=== PATIENT | male | born 1960 | race Caucasian/White ===

== ENCOUNTER 2019-01-02 17:22 | Inpatient (IN) ==
[2019-01-02 17:56] LABS: BASO# 0.02 X1000 (0.0-0.2); BASO% 0.2 % (0.0-0.8); EOS% 0.8 % (0.0-10.0); HEMATOCRIT 48.9 % (42.0-52.0); HEMOGLOBIN 16.9 g/dL (14.0-18.0); IMM GRAN# 0.03 X1000 (0.0-0.04); IMM GRAN% 0.2 % (0.0-0.5); LYMPH# 1.16 X1000 (1.2-3.4); LYMPH% 8.8 % (20.5-51.1); MCH 29.8 PG (27-31); MCHC 34.6 g/dL (33-37); MCV 86.1 FL (81-99); MONO# 1.32 X1000 (0.11-0.59); MPV 11.4 FL (7.4-10.4); NEUT# 10.58 X1000 (1.4-6.5); PLT 230 X1000 (130-400); RBC 5.68 XMIL (4.7-6.1); RDW 12.8 % (11.5-14.5); WBC 13.21 X1000 (4.8-10.8)
[2019-01-02 18:16] LABS: ALBUMIN 4.6 g/dL (3.5-5.0); CALCIUM 9.7 mg/dL (8.8-10.2); CREATININE 1.9 mg/dL (0.7-1.2); POTASSIUM 3.8 mmol/L (3.5-5.1); TOTAL BILIRUBIN 1.3 mg/dL (0.20-1.00); TOTAL PROTEIN 7.9 g/dL (6.3-8.3)
[2019-01-02 19:09] LABS: BILIRUBIN URINE 2+ (NEGATIVE); BLOOD URINE NEGATIVE (NEGATIVE); CLARITY CLEAR (CLEAR); COLOR AMBER; GLUCOSE URINE NEGATIVE (NEGATIVE); KETONE URINE 1+(Small) mg/dL (NEGATIVE); LEUKOCYTES URINE TRACE (NEGATIVE); NITRITE URINE NEGATIVE (NEGATIVE); PROTEIN URINE 1+(30 mg/dL) mg/dL (NEGATIVE); SP GRAVITY URINE 1.025; UROBILINOGEN URINE 4 mg/dL
[2019-01-02 19:28] LABS: URINE SOURCE CLEAN CATCH
[2019-01-02 19:30] LABS: URINE BACTERIA 2+ /HFP; URINE CAST NONE SEEN /LPF; URINE CRYSTAL NONE SEEN /HPF; URINE EPITHELIAL CELLS >10 /HPF (<10); URINE RBC <10 /HPF (<10); URINE YEAST NONE SEEN /HPF
[2019-01-02] MEDS ORDERED: NS 1,000 ML IV ONE ×2 (22:20→23:48)
[2019-01-02] MEDS ORDERED: ZOFRAN IV ONE (22:22)
[2019-01-03] MEDS ORDERED: ZOSYN 3.375 GM in NS 50 ML IV ONE (01:19)
--- NOTE | 2019-01-03 01:46 | PROVIDER DOCUMENTATION ---
This chart was entered by Xochitl Banks Scribe, acting as scribe for Ward Peng MD. HPI-Abdominal Pain/GI Problem - General Chief Complaint: N/V/D Stated Complaint: REFLUX / BLOATED / D / V Time Seen by Provider: 01/02/19 22:20 Source: patient Allergies/Adverse Reactions: Patient Allergies Allergy/AdvReac Type Severity Reaction Status Date / Time No Known Allergies Allergy Verified 01/03/19 00:31 - History of Present Illness-ABD Nature of Presenting Problems: 58 y/o male presents to ED with epigastric pain, bloating, weakness, and N/V/D onset 3 days ago. Pt reports hx GERD. Pt is alert and oriented. Abdominal Pain Onset Location: reports: epigastric Pain Radiation: reports: no radiation Quality of Pain: reports: aching Severity in ED: reports: mild Onset/Duration: reports: 3 days ago Timing: reports: still present Activities at Onset: reports: none Exposure to sick contacts?: No Modifying Factors: improves with: nothing Associated Symptoms: reports: diarrhea, nausea, vomiting, weakness, other (epigastric pain; bloating) Last BM: this evening Dark Stools Present?: reports: none noticed Rectal Bleeding: reports: none Rectal Pain: reports: none Similar Symptoms Previously?: No Recently seen or treated by another doctor?: No Review of Systems - Adult - REVIEW OF SYSTEMS - ADULT Constitutional: denies: chills, fever Eyes: reports: no symptoms reported Ears, Nose, Mouth & Throat: reports: no symptoms reported Cardiovascular: denies: chest pain, palpitations Respiratory: denies: cough, shortness of breath Gastrointestinal: reports: abdominal pain, diarrhea, nausea, vomiting, other (b loating) Genitourinary: reports: no symptoms reported Musculoskeletal: denies: back pain, joint pain Integumentary: reports: no symptoms reported Neurological: reports: other (weakness). denies: dizziness/vertigo, seizure Psychiatric: reports: no symptoms reported Endocrine: reports: no symptoms reported Hematologic/Lymphatic: reports: no symptoms reported Allergic/Immunologic: reports: no symptoms reported All Other Systems: Reviewed and Negative Past History - Adult - PAST MEDICAL HISTORY-ADULT Review of Records: reports: Old Records Reviewed, Nursing Assessment Review, Medications Reviewed Major Childhood Illnesses: reports: denies history - PRIOR SURGERIES/PROCEDURES Surgical/Procedure History: reports: none - IMMUNIZATION STATUS Childhood Immunizations: See Nurse Assessment Flu Vaccine: See Nurse Assessment - FAMILY HISTORY Family History: reviewed, not pertinent - SOCIAL HISTORY Smoking: chew Provider spent 3-5 mins advising pt. on dangers of tobacco.: Discussed manners to quit use, and f/u contacts for add'l counseling. Substance Use: none/never Alcohol Use Frequency: never Living Situation: family Physical Exam-General - PHYSICAL EXAM-ADULT Initial Vital Signs Reviewed: Yes - CONSTITUTIONAL General Appearance: appears well, alert, no apparent distress - EYES Eyes: PERRL/EOMI, pink conjunctivae - HEAD, EARS, NOSE, MOUTH & THROAT HENMT: normocephalic/atraumatic, moist mucous membranes, normal ENT inspection - NECK Neck: non-tender, full range of motion - RESPIRATORY Respiratory: chest non-tender, lungs clear, normal breath sounds - CARDIOVASCULAR Cardiovascular: normal peripheral pulses, regular rate, rhythm - GASTROINTESTINAL (ABDOMEN) Abdominal Exam: non tender, soft, abnormal bowel sounds (hyperactive; high pitched) - MUSCULOSKELETAL Back Exam: normal inspection, no CVA tenderness Extremity: normal range of motion, non-tender, normal gait - SKIN Integumentary: normal color, warm/dry - NEUROLOGIC Neurologic: grossly normal - PSYCHIATRIC Psych/Mental Status: normal mood/affect, normal thought content, normal thought process Progress - PLAN OF CARE/RESULTS Progress/Plan/Lab Results: Vital Signs - 8 hr 01/02/19 17:26 Temperature 98.5 F Pulse Rate 90 Respiratory Rate 18 Blood Pressure 117/79 O2 Sat by Pulse Oximetry 95 Laboratory Results - last 24 hr 01/02/19 01/02/19 01/02/19 17:30 17:30 17:30 WBC 13.21 H RBC 5.68 Hgb 16.9 Hct 48.9 MCV 86.1 MCH 29.8 MCHC 34.6 RDW Std Deviation 12.8 Plt Count 230 MPV 11.4 H Immature Gran % (Auto) 0.2 Neut % (Auto) 80.0 H Lymph % (Auto) 8.8 L [place] % (Auto) 10.0 H Eos % (Auto) 0.8 Baso % (Auto) 0.2 Immature Gran # (Auto) 0.03 Neut # (Auto) 10.58 H Lymph # (Auto) 1.16 L [place] # (Auto) 1.32 H Eos # (Auto) 0.10 Baso # (Auto) 0.02 Sodium 140 Potassium 3.8 Chloride 97 L Carbon Dioxide 29 Anion Gap 14 BUN 35 H Creatinine 1.9 H Estimated GFR/1.73 m2 37 BUN/Creatinine Ratio 18 Glucose 110 H POC Glucose Calculated Osmolality 288 Calcium 9.7 Total Bilirubin 1.30 H AST 28 ALT 37 Alkaline Phosphatase 79 Total Protein 7.9 Albumin 4.6 Globulin 3.0 Albumin/Globulin Ratio 1.0 Amylase 45 Lipase 37 Urine Source Urine Color Urine Clarity Urine pH Ur Specific [place] Urine Protein Urine Ketones Urine Blood Urine Nitrite Urine Bilirubin Urine Urobilinogen Urine Microscopic RBC Urine WBC Urine Microscopic WBC Ur Epithelial Cells Urine Crystals Urine Bacteria Urine Casts Urine Yeast Urine Glucose 01/02/19 01/02/19 17:39 18:03 WBC RBC Hgb Hct MCV MCH MCHC RDW Std Deviation Plt Count MPV Immature Gran % (Auto) Neut % (Auto) Lymph % (Auto) [place] % (Auto) Eos % (Auto) Baso % (Auto) Immature Gran # (Auto) Neut # (Auto) Lymph # (Auto) [place] # (Auto) Eos # (Auto) Baso # (Auto) Sodium Potassium Chloride Carbon Dioxide Anion Gap BUN Creatinine Estimated GFR/1.73 m2 BUN/Creatinine Ratio Glucose POC Glucose 98 Calculated Osmolality Calcium Total Bilirubin AST ALT Alkaline Phosphatase Total Protein Albumin Globulin Albumin/Globulin Ratio Amylase Lipase Urine Source CLEAN CATCH Urine Color GRECIA Urine Clarity CLEAR Urine pH 5.0 Ur Specific [place] 1.025 Urine Protein 1+(30 mg/dL) A Urine Ketones 1+(Small) A Urine Blood NEGATIVE Urine Nitrite NEGATIVE Urine Bilirubin 2+ A Urine Urobilinogen 4 Urine Microscopic RBC <10 Urine WBC TRACE A Urine Microscopic WBC 10-20 A Ur Epithelial Cells >10 A Urine Crystals NONE SEEN Urine Bacteria 2+ Urine Casts NONE SEEN Urine Yeast NONE SEEN Urine Glucose NEGATIVE Orders Category Date Time Status Saline Loc DIRECTED Care 01/02/19 17:29 Active NPO Diet 01/02/19 17:29 Active AMYLASE [CHEM] Stat Lab 01/02/19 17:30 Completed CBC WITH ELECTRONIC DIFF [HEME] Stat Lab 01/02/19 17:30 Completed COMPREHENSIVE METABOLIC PANEL [CHEM] Stat Lab 01/02/19 17:30 Completed LIPASE [CHEM] Stat Lab 01/02/19 17:[address] W/POSS RFLX CULT [URINALYSIS] Stat Lab 01/02/19 17:39 Completed URINE CULTURE [RM] Routine Lab 01/02/19 17:39 Received Result Diagrams: 01/02/19 17:30 01/02/19 17:30 - XRAY 1 XRAY Study: Abdomen Impression: Abnormal (Bowel obstruction. read by Dr. Peng) 2 XRAY Study: Chest Impression: Normal (read by Dr. Peng) - CT/MRI 1 CT Study: Abdomen, Pelvis Impression: Abnormal (1. Mechanical small bowel obstruction of moderate degree, likely in the right abdomen and in the region of the mid to distal ileum but not clearly demonstarted. 2. left inguinal hernia containing sigmoid colon, without obstruction or strangulation. -radiology), See EMR Report - CONSULTS/PCP/HOSPITALIST Notification #1 *Consult/PCP/Hospitalist*: Dr. House Time Discussed: 23:41 Reason/Comments: Bowel obstruction Consult Disposition: Admit (Place NG tube; order CT; admit to [facility]) #2 Consult: Dr. Oliva Time Discussed: 02:43 Reason/Comments: Bowel obstruction Consult Disposition: Admit Departure - Departure Date of Disposition Decision: 01/02/19 Time of Disposition Decision: 23:46 DIAGNOSIS: Small bowel obstruction Disposition: ADMITTED INPATIENT 09 Certified Medical Emergency: Emergent Condition: Fair - Critical Care Note This patient required my direct & personal management of CC.: No Attestation - Physician/ SHARAN Attestation Patient care was provided by Advanced Practice Provider:: No The physician spent face to face time with patient:: Yes Advanced Practice Provider documentation review:: Supervising physician onsite and consulted in the evaluation and care of this patient. The physician did have a face to face encounter with the patient. This chart was documented by the indicated scribe, (Xochitl Banks Scribe) and accurately reflects the services I performed and decisions made by me, Ward Peng MD, as attested by the provider's signature.
[2019-01-03] MEDS: DEMEROL IV PRN ×3 (05:02→21:30)
[2019-01-03] MEDS ORDERED: ZOFRAN IV ONE (05:22)
--- NOTE | 2019-01-03 05:25 | Diag Imaging Result Doc PS360 ---
EXAM: CHEST-2 VIEWS HISTORY: cough TECHNIQUE: Chest two views COMPARISON: None. FINDINGS: The lungs are well expanded. The heart is not enlarged. The vessels are not distended. There are no infiltrates. No pleural effusions. IMPRESSION: No pneumonia Electronically signed by Brendan Gutierrez 01/03/2019 5:22 AM
--- NOTE | 2019-01-03 05:28 | Diag Imaging Result Doc PS360 ---
EXAM: ABDOMEN FLAT/UPRIGHT HISTORY: pain TECHNIQUE: Flat and upright, three views COMPARISON: None. FINDINGS: No free air beneath the diaphragm. There are air distended bowel loops with air-fluid levels. No organomegaly. No foreign body. No abnormal calcifications. There are several pelvic phleboliths. IMPRESSION: Distal bowel obstruction. Electronically signed by Brendan Gutierrez 01/03/2019 5:25 AM
--- NOTE | 2019-01-03 05:36 | Diag Imaging Result Doc PS360 ---
EXAM: CHEST-1 VIEW HISTORY: ng placement TECHNIQUE: Chest single view COMPARISON: 01/02/2019 FINDINGS: A nasogastric tube has been placed since the prior exam. The distal tip is difficult to see, but it appears to be near the GE junction without definitely entering the stomach. There is basilar atelectasis. No consolidation. No pleural effusions identified. IMPRESSION: The nasogastric tube has its tip near the GE junction and should be advanced. Electronically signed by Brendan Gutierrez 01/03/2019 5:34 AM
[2019-01-03] MEDS ORDERED: TYLENOL PR PRN (06:16)
[2019-01-03] MEDS ORDERED: PROTONIX IV SCH ×3 (06:18→19:00)
--- NOTE | 2019-01-03 06:21 | HISTORY AND PHYSICAL ---
HISTORY OF PRESENT ILLNESS: A 71-year-old man, with a past medical history of hypertension and hyperlipidemia, who, 5 days ago developed intractable nausea, vomiting and diarrhea, less than 12 hours after eating shrimp seafood. His brother's girlfriend ate the same meal and developed similar symptoms. Two days later he got better from his symptoms, however, started having recurrent nausea, vomiting and diarrhea to the point that he noticed abdominal distention and diffuse abdominal pain. He was seen at [place] and chest x-ray showed numerous air-fluid levels, and dilated large and small-bowel. Dr. House was notified and told the patient to be transferred to our service and see the patient in the morning. The patient is currently still passing gas without any difficulty. His last bowel movement was yesterday. It was a small amount but was liquid, no bleeding per rectum. No fever or chills. His white count is 13,000. BUN is 35 and creatinine is 1.9. PHYSICAL EXAMINATION: Exam is notable for dry oral mucosa, decreased skin turgor, protuberant abdomen. No focal areas of tenderness. ASSESSMENT AND PLAN: I surmise that this patient may probably have a distended ileum and does have large and small- bowel ileus from food poisoning. We will continue NG tube suction over the next 48 hours, repeat films to show improvement. However, findings do not rule out the possibility of a mechanical obstruction. Failure to resolve may necessitate surgical intervention by Dr. House. Hopefully,with hydration and PRN electrolyte repletion, this may improve symptoms. cc: Rachel Oliva MD [facility]
[2019-01-03] MEDS ORDERED: NS 1,000 ML IV SCH (06:30)
[2019-01-03] MEDS ORDERED: SODIUM CHLORIDE 0.9% INJ SCH (06:30)
--- NOTE | 2019-01-03 06:58 | Diag Imaging Result Doc PS360 ---
CT ABD/PELVIS W/ORAL CONT ONLY - 01/02/2019 INDICATION: pain COMPARISON: None FINDINGS: The lung bases are clear and the heart size is normal. There is severe dilation of the vast majority of the small bowel. There is some collapsed distal small bowel. The transition point is in the lateral right lower quadrant, image #91. The reason is unclear however. There is some trace pelvic free fluid. Prostate is atrophic or absent. Urinary bladder and rectum are normal. There is a small left inguinal hernia containing some sigmoid colon. No obstruction or inflammation here. There are moderate degenerative changes of the spine. No acute or suspicious bony lesion. IMPRESSION: 1. Distal small bowel obstruction with the transition point in the lateral right lower quadrant. The reason is unclear. 2. Small left inguinal hernia containing some sigmoid colon but no obstruction or inflammation here. This exam was performed using automated exposure control, adjustment of mA or kV according to patient size, and/or use of iterative reconstruction technique Electronically signed by Alex Hoyt 01/03/2019 6:56 AM
[2019-01-03 07:23] LABS: BASO# 0.03 X1000 (0.0-0.2); BASO% 0.4 % (0.0-0.8); EOS# 0.13 X1000 (0.0-0.7); EOS% 1.6 % (0.0-10.0); HEMATOCRIT 45.3 % (42.0-52.0); HEMOGLOBIN 15.5 g/dL (14.0-18.0); IMM GRAN# 0.02 X1000 (0.0-0.04); IMM GRAN% 0.3 % (0.0-0.5); LYMPH# 0.98 X1000 (1.2-3.4); LYMPH% 12.3 % (20.5-51.1); MCH 30.1 PG (27-31); MCHC 34.2 g/dL (33-37); MONO% 11.3 % (1.7-9.3); MPV 11.2 FL (7.4-10.4); NEUT# 5.94 X1000 (1.4-6.5); NEUT% 74.1 % (42.2-75.2); PLT 194 X1000 (130-400); RBC 5.15 XMIL (4.7-6.1)
[2019-01-03 07:39] LABS: CALCIUM 8.5 mg/dL (8.8-10.2); CREATININE 1.4 mg/dL (0.7-1.2); POTASSIUM 3.4 mmol/L (3.5-5.1)
--- NOTE | 2019-01-03 08:03 | EKG Report ---
Test Performed on : 01/03/2019 06:58:22 AM Test Reason : Small Bowel Obstruction,Poss. Surgical Patient Blood Pressure : / mmHG Vent. Rate : 060 BPM Atrial Rate : 060 BPM P-R Int : 196 ms QRS Dur : 120 ms QT Int : 436 ms P-R-T Axes : 037 -48 011 degrees QTc Int : 436 ms Normal sinus rhythm. Right bundle branch block Left anterior fascicular block Bifascicular block Minimal voltage criteria for LVH, may be normal variant Abnormal ECG No previous ECGs available Confirmed by Maxim GUSTAFSON, David Dixon ([id number]) on 01/04/2019 9:05:28 AM
[2019-01-03] MEDS: ZOSYN 2.25 GM in NS 50 ML IV SCH ×3 (09:00→22:59)
--- NOTE | 2019-01-03 10:00 | HISTORY AND PHYSICAL ---
PRIMARY CARE PROVIDER: Dr. Luis Alberto Hernandez. CHIEF COMPLAINT: Nausea, vomiting, diarrhea and abdominal pain. HISTORY OF PRESENT ILLNESS: Mr. Bejarano is a 71-year-old male who presented to [place] ER yesterday evening with complaints of nausea vomiting and diarrhea that started 5 days ago on Monday. He reported this started approximately 12 hours after eating seafood, shrimp. There was a female which is his brother's girlfriend who ate the same meal as him and developed similar symptoms. The patient states his symptoms began on Monday. He began to feel a little better on Monday and early Monday though he states Monday night his symptoms did begin to worsen again with continued nausea, vomiting, diarrhea though he did begin to develop epigastric pain and did have abdominal distention. The patient denies any headache, dizziness, chest pain, shortness of breath, or cough. He denies any fever, body aches, or chills. He denies any dysuria. He also denies any pain numbness tingling or swelling in extremities. The patient did present to the ER at [place] for further evaluation. He was noted to have some slight leukocytosis with a white blood cell. though he has been afebrile since arrival. Chemistries revealed acute kidney injury with a creatinine of 1.9. BUN 35, and GFR 37 though the patient does not have any previous labs to compare this to though given his nausea, vomiting ,diarrhea he may likely be fluid volume depleted and may have an acute kidney injury secondary to this. Urinalysis did show what appears to be a urinary tract infection though he is asymptomatic at this time. Initial abdominal x-ray did show what appeared to be a distal bowel obstruction. Further exam, CT abdomen and pelvis with oral contrast only did show a distal small-bowel obstruction with a transition point in the lateral right lower quadrant. The reason is unclear. He has also had a small left inguinal hernia containing some sigmoid colon but no obstruction or inflammation here. Dr. House with surgery was notified and the patient to [facility] for further treatment and evaluation. in the ER, they did place an NG tube as well and the patient states that since this was placed he does have improved abdominal distention, pain and vomiting though he is experiencing some nausea. REVIEW OF SYSTEMS: A 14 point review of systems was conducted with the patient. All were negative except for pertinent positives mentioned in the above HPI. PAST MEDICAL HISTORY: 1. Hypertension. 2. Hyperlipidemia. 3. Prostate cancer. PAST SURGICAL HISTORY: 1. Prostate surgery for treatment of prostate cancer. 2. Hernia repair for which the patient reports was in his right lower quadrant. SOCIAL HISTORY: The patient is a former smoker. He did smoke for a period of 30 years at 1 pack per day though quit 10 years ago. He denies any alcohol or illicit drug use. 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 FAMILY HISTORY: Positive for his mother having hypertension and from dementia in 2016. His father had a history of coronary artery disease, and did have a myocardial infarction. He also had aortic aneurysm though did secondary to a brain aneurysm. He did have hypertension as well. ALLERGIES: Patient reports no known allergy. HOME MEDICATIONS: The patient's medication list has not been updated in the computer and actually states that he has no home medicines though upon further investigation with the patient he does take from what I gather lisinopril 20 mg 1 tablet p.o. daily. Amlodipine 5 mg 1 tablet p.o. daily and pravastatin 80 mg p.o. daily. This was in his external prescription history as well. DIAGNOSTIC DATA/LABORATORY RESULTS: White blood cell count is 13,210 hemoglobin 16.9 hematocrit 48.9, platelet count is 230,000. Sodium 140, potassium 3.8, chloride 97, serum bicarb 29. BUN 14, creatinine 1.9 with a GFR of 37. Glucose 110. Calcium 9.7. Total bilirubin is 1.3 though all other limbs other liver enzymes were within normal limits. Amylase 45, lipase 37 plasma lactate 1.1. Urinalysis was obtained via clean catch, was positive for protein, ketones, bilirubin, trace white blood cells, 2+ bacteria though was negative for blood, nitrites, glucose or yeast. Abdomen x-ray flat and upright, showed distal bowel obstruction. Chest x-ray did show that the lungs were well expanded. Heart was not enlarged. Vessels were nondistended. There were no infiltrates, pleural effusions or pneumonia present. CT of the abdomen and pelvis with oral contrast only did show a distal small-bowel obstruction with a transition point in the lateral right lower quadrant. The reason is unclear. There is also a small left inguinal hernia containing some sigmoid colon though no obstruction of inflammation was identified. PHYSICAL EXAMINATION: VITAL SIGNS: Temperature 98.2 degrees, heart rate 64, respirations 16, blood pressure is 122/80, oxygen saturation is 94% on room air. GENERAL: Mr. Bejarano is a very pleasant, 58-year-old, male who is resting in the inpatient bed. He was in no acute distress. He was awake, alert, and able to answer questions appropriately. HEENT: Head is atraumatic, normocephalic. Pupils are equal, round, reactive to light, were 3 mm bilaterally and brisk. Oral mucosa was slightly dry. Oropharynx is clear. NECK: Supple. Trachea midline. CARDIOVASCULAR: Patient has S1-S2 present. No murmurs, gallops, rubs appreciated with a regular rate and rhythm. PULMONARY: Patient has symmetrical chest expansion bilaterally. LUNG: Lung sounds clear to auscultation in bilateral full sneed.Abdomen: Soft, does still appear to be slightly be distended. There were no overt areas of tenderness upon palpation. Bowel sounds were present in all 4 quadrants, were hypoactive. Extremities: No cyanosis, clubbing, or edema noted. Pulse, motor, and sensory were intact in all extremities. Radial pulses and pedal pulses were 2+ bilaterally. Integumentary: The patient's skin is pink, warm, and dry. Neurological: Patient is alert and oriented x4. He is able to move all extremities. There was no focal neurological deficits noted. ASSESSMENT AND PLAN: 1. Small-bowel obstruction. The patient did have reported 5 day history of some nausea, vomiting and diarrhea. This did began 12 hours after eating seafood, shrimp. This could be related secondary to possible ileus from possible food poisoning. The patient has had NG tube placed in the emergency room at [place]. He is reporting improved symptoms of abdominal pain, distention and vomiting since placement though he is experiencing some nausea. We have placed a surgical consult with Dr. House and will await his evaluation and further recommendations for management. We have placed him NPO, will provide IV fluid hydration and p.r.n. pain and antiemetics. 2. Fluid volume depletion. This is likely secondary to his nausea, vomiting, diarrhea. He was given a 2 L normal saline bolus in the ER. We will continue with normal saline at 125 mL/hour. We will continue to follow. 3. Acute kidney injury. This is likely secondary to fluid volume depletion as well as the patient does take lisinopril as well. This may have contributed to this also. We will continue with IV hydration. We will avoid nephrotoxic medications and renally dose medications as necessary. 4. Urinary tract infection. The patient is a asymptomatic at this time. We have placed orders for urine culture. He is receiving IV antibiotic of Zosyn secondary to his small bowel obstruction. This would cover urinary tract infection as well. We will continue to follow. 5. History of hypertension. The patient's blood pressure is within normal limits at this time, and has been since his arrival is maintained in the 1- teens and 120's systolically. He is NPO at this time. We will continue to monitor this and implement IV antihypertensives as necessary though we will hold his lisinopril definitely given his acute kidney injury. 6. Deep vein thrombosis prophylaxis provided with sequential compression devices. 7. He has been placed on the surgical floor with telemetry. He will have vital signs every 8 hours. We will do strict intake and output. We will await surgical evaluation by. 8. Further orders and recommendations pending hospital course, diagnostic studies and physician evaluation. Dictated by PINEDA Dewitt for Rachel Oliva MD cc: Rachel Oliva MD
[2019-01-03] MEDS ORDERED: ZOFRAN IV PRN (10:30)
--- NOTE | 2019-01-03 10:59 | CONSULTATION ---
DATE OF CONSULTATION: 01/03/2019 HISTORY: Mr. Don Bejarano is a 58-year-old white male who has a history of prostatectomy and right inguinal hernia repair. He presented to [facility] Emergency Department during the night with a 5-day history of abdominal distention, nausea and vomiting. Evidently, there is a history of eating seafood a day or 2 before his symptoms. He presented to the emergency department because of his persistent symptoms and increasing weakness. Evaluation at [place] emergency department included flat and upright abdominal films, and also CT scan of his abdomen and pelvis which suggested a possible small bowel obstruction. He was transferred from [facility] Emergency Department to [facility] for possible need for surgical treatment. PAST MEDICAL HISTORY: Prostatectomy robotically. Right inguinal hernia repair. ALLERGIES: No known drug allergies. MEDICATIONS: None. SOCIAL HISTORY: His family was at the bedside. He chews tobacco. REVIEW OF SYSTEMS: A 14-point review of systems was performed and was essentially negative except for the history of present illness. He does intermittently have some gastroesophageal reflux disease. FAMILY HISTORY: Noncontributory. PHYSICAL EXAMINATION: Vital Signs: On exam, he is afebrile. Pulse rate is 90, blood pressure 117/79, O2 saturation 95%. General: Mr. Bejarano appears to be healthy white male slightly overweight in no acute distress. He has an NG tube in place. No jaundice. No oral lesions. Lymphatics: No cervical or supraclavicular lymphadenopathy. Heart: Regular rate. Lungs: Clear to auscultation and percussion bilaterally. Abdomen: Appears to be somewhat distended but not tightly so. There is no significant tenderness to palpation of his abdomen. There was no evidence of incarcerated hernia or other palpable mass. He had no costovertebral tenderness. Pelvic and Rectal: Rectal exam was not performed. Extremities: He has palpable peripheral pulses. No peripheral edema. Neurological: No focal deficits. DIAGNOSTIC DATA: Flat and upright abdominal films show abnormally dilated small bowel. There did appear to be some gas in the colon. A CT scan was performed, and it was read as possible small bowel obstruction right lower quadrant of the abdomen. His white blood cell count is normal today; it was 13 on admission. His creatinine was elevated at 1.9 suggesting dehydration, and is 1.4 this morning. Liver function tests were within normal limits. He has not had much output from his NG tube since it has been placed. PLAN: He is receiving IV Zosyn prophylactically. He is being resuscitated with IV fluids which is helping. Clinically, he states he feels better than last night with less abdominal distention. He does say that he has passed some gas. We will repeat abdominal films today, and follow him clinically. cc: Haylie House MD
--- NOTE | 2019-01-03 11:26 | Diag Imaging Result Doc PS360 ---
EXAM: FLAT/UPRIGHT ABD/1 VIEW CHEST HISTORY: SBO vs ileus TECHNIQUE: Flat and upright with chest, three views COMPARISON: 3:45 AM FINDINGS: The lungs remain well expanded and clear. No cardiomegaly. There is a nasogastric tube entering the stomach. There are several distended small bowel loops with air-fluid levels. The colon appears collapsed. IMPRESSION: Small bowel obstruction. Electronically signed by Brendan Gutierrez 01/03/2019 11:23 AM
[2019-01-03] MEDS ORDERED: POTASSIUM CHLORIDE 40 MEQ in NS 1,000 ML IV SCH (11:30)
--- NOTE | 2019-01-03 19:28 | PROGRESS NOTE ---
DATE: 01/03/2019 SUBJECTIVE: Mr. Don Bejarano's abdomen seems to be softer this evening. He still has an NG tube in, and he does not have a large amount of output from his NG tube. Flat and upright abdominal films from this morning still suggest abnormal dilatation of the small bowel, but he admits to some flatus today. He has been n.p.o. OBJECTIVE: His heart rate is 65, blood pressure 126/68, O2 saturation 97%. He is afebrile. He is receiving IV Zosyn prophylactically. His chest x-ray is mostly clear. His white blood cell count is now normal. His hematocrit is 45%. His BUN and creatinine are improving with IV hydration. PLAN: I will leave his nasogastric tube tonight. I will ask that he continue to move around his room and even out in the daniel and reassess him clinically tomorrow. cc: Haylie House MD
[2019-01-04] MEDS ORDERED: NS 1,000 ML IV SCH (00:15)
[2019-01-04] MEDS: ZOSYN 2.25 GM in NS 50 ML IV SCH ×2 (04:03→10:23)
[2019-01-04 07:24] LABS: BASO# 0.03 X1000 (0.0-0.2); BASO% 0.3 % (0.0-0.8); EOS# 0.19 X1000 (0.0-0.7); HEMOGLOBIN 15.5 g/dL (14.0-18.0); LYMPH# 1.38 X1000 (1.2-3.4); LYMPH% 14.4 % (20.5-51.1); MCH 29.9 PG (27-31); MCHC 33.7 g/dL (33-37); MCV 88.6 FL (81-99); MONO# 1.02 X1000 (0.11-0.59); MONO% 10.6 % (1.7-9.3); MPV 11.2 FL (7.4-10.4); NEUT# 6.97 X1000 (1.4-6.5); NEUT% 72.7 % (42.2-75.2); PLT 224 X1000 (130-400); RBC 5.19 XMIL (4.7-6.1); RDW 12.9 % (11.5-14.5); WBC 9.59 X1000 (4.8-10.8)
[2019-01-04 07:58] LABS: AGAP 13; BUN 24 mg/dL (8-22); CALCIUM 8.9 mg/dL (8.8-10.2); CHLORIDE 105 mmol/L (98-107); COSMO 285; CREATININE 1.1 mg/dL (0.7-1.2); ESTIMATED GFR > 60; GLUCOSE 67 mg/dL (70-104); MAGNESIUM 2.1 mg/dL (1.5-2.7); POTASSIUM 3.9 mmol/L (3.5-5.1); SODIUM 142 mmol/L (136-145); TCO2 24 mmol/L (25-35)
[2019-01-04] MEDS ORDERED: D5 1/2 NS 1,000 ML IV SCH (08:30)
[2019-01-04] MEDS ORDERED: PROTONIX IV SCH (09:00)
--- NOTE | 2019-01-04 11:34 | Diag Imaging Result Doc PS360 ---
EXAM: FLAT/UPRIGHT ABD/1 VIEW CHEST - 01/04/2019 HISTORY: SBO vs ileus TECHNIQUE: Supine and upright abdomen and one view chest COMPARISON: 01/03/2019 FINDINGS: There is a nasogastric tube is tip at the proximal to mid stomach. There has been interval decrease in gaseous small bowel distention. There is residual mild gaseous distention of several small bowel loops. There is oral contrast from recent CT scan in the colon. There is no free air identified. Upright chest shows no significant interval changes. There is subsegmental atelectasis at the left base. There is no consolidation, pleural effusion, or pneumothorax identified. Heart size appears normal. IMPRESSION: Mild gaseous small bowel distention which has decreased compared to prior. Stable chest. Subsegmental atelectasis at left base. Electronically signed by Karan Mack 01/04/2019 11:32 AM
--- NOTE | 2019-01-04 12:46 | PROGRESS NOTE ---
DATE: 01/04/2019 Mr. Don Bejarano is a 58-year-old white male who has been admitted with possible small bowel obstruction. I think clinically he has improved with hydration during his hospitalization. His abdomen is soft today. He has had a bowel movement, and also some flatus. His abdominal films are improved. It shows that the dye that he drank when he got a CT scan on the day of admission is in his left colon, sigmoid and rectum. I removed his NG tube. We will start him on clear liquid diet. We will stop his antibiotics and on IV medications. If he tolerates liquids, we will advance his diet and send him home. cc: Haylie House MD
--- NOTE | 2019-01-04 13:47 | PROGRESS NOTE ---
DATE: 01/04/2019 SUBJECTIVE: This patient states that he is feeling better. His abdomen is not distended. He has been passing some gases, small bowel movement today. Surgery department has removed the NG tube and put him on a liquid diet. We will follow this patient closely. OBJECTIVE: Vital Signs: Temperature 98 degrees, pulse 64, respiratory rate 20, blood pressure 138/68, oxygen saturation 97% on room air. HEENT: Head normocephalic. No trauma. PERRLA. Neck: Supple. No JVD. No masses. Central trachea. Chest: Clear to auscultation. No wheezing. No rales. Abdomen: Soft. Some mild discomfort to palpation at the level of the periumbilical area. Positive bowel sounds. Extremities: No edema, no clubbing, no cyanosis. Neurological: The patient is alert and oriented x3. No focal deficits. LABORATORY DATA: WBC 9.5, hemoglobin 15.5, hematocrit 46, platelet 224,000. Sodium 142, potassium 3.9, chloride 105, bicarbonate 24, BUN 24, creatinine 1.1, glucose 67, calcium 8.9, magnesium 2.1. ASSESSMENT AND PLAN: 1. Small bowel obstruction. I do believe this is getting better. The NG tube has been removed. He has been passing gas and he had a small hard bowel movement today. We will continue to follow recommendations of Surgery Department. He has been placed on a liquid diet. 2. Dehydration, resolved. 3. Acute kidney injury, resolved. 4. Deep venous thrombosis prophylaxis with sequential compression devices. 5. Hypertension, stable. Will monitor. 6. Hyperlipidemia, We will put this patient on pravastatin once he is able to tolerate p.o. cc: Kvng Vides MD
[2019-01-05 07:17] LABS: AGAP 10; BUN 13 mg/dL (8-22); CALCIUM 8.5 mg/dL (8.8-10.2); CHLORIDE 105 mmol/L (98-107); COSMO 283; CREATININE 0.9 mg/dL (0.7-1.2); ESTIMATED GFR > 60; GLUCOSE 91 mg/dL (70-104); POTASSIUM 3.8 mmol/L (3.5-5.1); SODIUM 142 mmol/L (136-145); TCO2 27 mmol/L (25-35)
[2019-01-05 07:31] VITALS: BP 124/89
--- NOTE | 2019-01-05 08:05 | GENERAL SURGERY PROGRESS NOTE ---
DATE: 01/05/2019 SUBJECTIVE: Patient doing well, having bowel movements, tolerating a diet. OBJECTIVE: Vital Signs: Patient is currently afebrile. His vital signs stable. General: No acute distress. HEENT: Normocephalic, atraumatic. Pupils equal, round, reactive to light. Mucous membranes moist. Oropharynx benign. Neck: Supple. Trachea midline. Cardiovascular: Regular rate and rhythm. Lungs: Grossly clear. Abdomen: Soft, nontender, nondistended. Extremities: Moves all extremities. Neurologic: Grossly intact. Skin: No signs of jaundice. Vascular: All extremities perfused. ASSESSMENT AND PLAN: A 58-year-old gentleman with a resolving small bowel obstruction. Resolving small bowel obstruction. At this time, patient is clinically doing well. He has had return of bowel function. From a surgical point of view, he can likely be discharged. He needs to follow up with Dr. House after discharge. They could even discuss inguinal hernia repair at that time. cc: Jeffy Falcon MD
--- NOTE | 2019-01-05 23:48 | DISCHARGE SUMMARY ---
ADMISSION DATE: 01/02/2019 DISCHARGE DATE: 01/05/2019 DISCHARGE DIAGNOSES: 1. Small-bowel obstruction. 2. Dehydration. 3. Acute kidney injury, resolved. 4. Hypertension. 5. Hyperlipidemia. PROCEDURES PERFORMED: 1. Abdominal x-ray dated 01/02/2019. Impression, distal bowel obstruction. 2. Chest x-ray dated 01/02/2019. Impression, no pneumonia. No acute abnormalities. 3. Abdomen and pelvis CT scan dated 01/02/2019, with oral contrast only. Impression, distal small-bowel obstruction with the transition point in the lateral right lower quadrant, the reason is unclear, small left inguinal hernia containing some sigmoid colon, but no obstruction or inflammation in that area. 4. Chest x-ray dated 01/03/2019. Impression, the NG tube has its tip near the GE junction and should be advanced. 5. Abdomen x-ray dated 01/03/2019. Impression, small-bowel obstruction. 6. Abdomen x-ray dated 01/04/2019. Impression, mild gaseous small-bowel distention, which has decreased compared to prior. HOSPITAL COURSE: A 71-year-old male with a past medical history of hypertension, hyperlipidemia, prostate cancer, presented to [facility] the day before admission complaining of nausea, vomiting, diarrhea that started 5 days before. He reported that this started around 12 hours after eating seafood, shrimp. He was admitted on 01/02/2019 and, apparently, somebody else had these symptoms and also had this kind of food. Then, a couple days later he started to develop epigastric pain and abdominal distention. He denied headache, dizziness, chest pain, shortness of breath or cough, fever, chills. No dysuria. He also denies any pain, numbness, tingling sensation in the extremities. The patient presented to the ER at [facility] for further evaluation. He was noted to have some slight leukocytosis. Chemistry showed acute kidney injury with a creatinine of 1.9, BUN 35. Urinalysis showed what appears to be a urinary tract infection, though he is asymptomatic at that time. Initial abdominal x-ray showed a distal of bowel obstruction, CT scan was ordered with oral contrast, and showed a distal small- bowel obstruction with a transition point in the lateral right lower quadrant, unclear reason. Also, a left inguinal hernia. Surgery department was notified, and they requested patient to be transferred to [facility] for further treatment. An NG tube has been placed with intermittent suction, and did improve abdominal distention. The patient was placed on IV fluids, nothing per mouth, and of course, we continued with the NG tube. Surgery department monitored this patient on a daily basis. He was improving and passing gas slowly, then we removed the NG tube and we started on a liquid diet, which he tolerated really well. Then, he started having a bowel movement, and also, the chemistry basically came back to normal, BUN and creatinine were normal today. This patient today is asymptomatic. Surgery Department evaluated this patient in the morning. I talked to the patient about his diet and he seems to understand. He will be discharged home and follow up with Dr. House in 3 to 4 weeks to talk about the inguinal hernia. He has been ambulating by himself, tolerating p.o. No nausea, no vomiting and, like I said, asymptomatic. I also recommended to start the lisinopril in 2 or 3 days since his kidneys are just recovering from acute kidney injury. OBJECTIVE: Vital Signs: Temperature 98.6 degrees, pulse 59, respiratory rate 20, blood pressure 124/89, oxygen saturation 98% on room air. HEENT: Head normocephalic, atraumatic. PERRLA. Neck: Supple. No JVD. No masses. Central trachea. Chest: Clear to auscultation. No wheezing. No rales. Abdomen: Soft, nontender, nondistended. No hepatosplenomegaly. Extremities: No edema, no clubbing, no cyanosis. Neurological: The patient is alert and oriented x3. No focal deficits. LABORATORY: Sodium 142, potassium 3.8, chloride 105, bicarbonate 27, BUN 13, creatinine 0.9. Glucose 91, calcium 8.5. DISCHARGE MEDICATIONS: This patient will continue with his home medications, including amlodipine 5 mg p.o. daily, lisinopril 20 mg p.o. daily, pravastatin 80 mg p.o. daily. For some reason, it looks like the medications were discontinued, but we will contact the patient again to let him know that he will continue with those medications. FOLLOW-UP: Follow up with primary care doctor in 1 week; also, Dr. House in 3 to 4 weeks to discuss about his hernia. cc: Kvng Vides MD
== END 2019-01-05 12:24 | disposition home or self-care (01) | DRG 389 ==
LOC: P.ED 17:22 → SUATTDRO 17:23 → 4N 01-03 01:38
PROVIDERS: ATTEND Internal Medicine
CPT/HCPCS: 71010; 71020; 71045; 71046; 74019; 74020; 74022; 74176; 80048; 80053; 81001; 82150; 82948; 83605; 83690; 83735; 85025; 87088; 93005; 93010; 94760; 96365; 96375; 99285; C9113; J2175; J2405; J2543; J3480; J7030; S0164; XXXXX